=== PATIENT | male | born 1955 | race Caucasian/White ===

== ENCOUNTER 2020-09-08 09:31 | Day surgery (SDC) | payer OTHER, SELFPAY ==
[2020-09-08] VITALS (10 sets, daily range): BP systolic 94–141; BP diastolic 44–77; PULSE 57–65; RESP 12–18; TEMP 36.1–36.6; O2SAT 91–97; BMI 40.8
--- NOTE | 2020-09-08 10:10 | SUR.PREOP ---
Pt to preop. Rapid covid swab done at 0957. Pt taken to Dr frey's office in wheelchair for H&P by NAS Rogers.
[2020-09-08 10:27] LABS: COVID19 -Nasal RAPID Negative (Negative)
--- NOTE | 2020-09-08 11:33 | SUR.PREOP ---
1033 - Pt returned from Dr Hernandez's office.
--- NOTE | 2020-09-08 12:00 | PM.PREOP ---
Pre-operative Note Interval Note History & Physical reviewed/Exam performed by Physician: Yes Changes to H&P: No
[2020-09-08] MEDS: LACTATED RINGERS 1,000 ML 42 ML IV (12:25)
[2020-09-08] MEDS: CEFAZOLIN VIAL 3 GM in SODIUM CHLORIDE 0.9% 100 ML 200 ML IV (12:38)
--- NOTE | 2020-09-08 13:07 | SUR.OPER ---
Lithotomy on padded OR bed, head on pillow, arms secured on padded arm boards at <90 degrees abduction. Legs secured in padded yellow fins stirrups. Safety Belt across abdomen.
--- NOTE | 2020-09-08 14:30 | PM.OP.1 ---
Operative Date/Time/Diagnoses Date of procedure: 09/08/20 Time of procedure: 14:30 Pre-op diagnosis: Large obstructing left ureteral calculi x2 Post-op diagnosis: same Procedure & Clinicians Procedure: 1. Cystoscopy and left ureteroscopic laser lithotripsy. 2. Cystoscopy and placement left ureteral stent Same procedure as scheduled: Yes Indications: 1. Large obstructing ureteral calculi x2 Surgeon: Eleni Hernandez Click Yes if Unassisted: Yes Anesthesia Type: General Operative Notes Findings: 1. Urethra-normal 2. External sphincter coapted with normal overlying urothelium. 3. Prostate-4.5 cm length with markedly elevated median bar. 4. Bladder-1 to 2+ trabeculation. Both ureteral orifices were large caliber likely from multiple previous interventions and stone passages. 5. Left ureter-index calculi were unchanged in their position as seen on recent CT KUB. Closure Type: not applicable Specimen(s): none sent Applied: other (6 Nepalese by 22-32 cm multi-length left ureteral stent) Estimated Blood Loss (mL): 0 Blood products transfused: none Tourniquet time (min): 0 Procedure in detail: Patient was positioned supine and administered general anesthesia. He was then repositioned semi lithotomy and the lower abdomen, genitalia and groin were prepped and draped in sterile fashion. The 22 Nepalese panendoscope was then passed and lower urinary tract with the findings as described above. A 0.35 hybrid guidewire was then selected and advanced through the working port of the panendoscope and advanced into the left collecting system under direct and fluoroscopic guidance. Next, a semi rigid ureteral scope was advanced lower urinary tract and then into the left ureteral orifice and then advanced more proximally. The most distal stone was encountered. A 273 micron laser fiber was then selected. All operating room personnel and patient were fitted with laser safety eyewear. Laser lithotripsy was then commenced and the stone fragment was gradually fragmented and broken down satisfactorily. Most of the residual fragments were cleared from the ureter with combined hydrostatic and mechanical agitation. The semi-rigid ureteroscope was then advanced more proximally where the left ureteral pelvic junction calculus was encountered. Laser lithotripsy was then again commenced and the stone began to break down but then migrated and fell into the renal pelvis proper. Next, the semi rigid ureteral scope was removed. A dual-lumen ureteral access catheter was then advanced over the existing guidewire under fluoroscopic guidance. A 2nd 0.35 guidewire was then advanced through the accessory lumen again under fluoroscopic guidance. The double-lumen ureteral access catheter was then backloaded off the wires. One wire was secured to the drape. The flexible ureteral scope was then advanced over the other wire and advanced into the inter renal collecting system on the left under fluoroscopic guidance. The guidewire was then removed. The laser fiber was then advanced into the flexible ureteral scope and the index calculus was then laser fragmented with painstaking effort. Flexible ureteral scope was then removed. The 22 Nepalese panendoscope was then backloaded onto the safety guidewire and advanced proximally. Now a 6 Nepalese by 22-32 cm multi-length ureteral stent was selected. This was advanced over the guidewire under direct and fluoroscopic guidance. A RETRIEVAL LINE WAS LEFT ATTACHED. The bladder was then drained completely and the panendoscope was removed a final time. The patient was then repositioned in supine, awakened, transferred to a rnorris awake in stable condition. Complications: none Post-operative Condition: stable Disposition: PACU Plan for aftercare: Discharge home
[2020-09-08] MEDS: FUROSEMIDE 20 MG/2 ML VIAL IV (14:40)
[2020-09-08] MEDS: OXYCODONE/ACETAMINOPHEN 5/325 TABLET 1 TAB PO (15:33)
== END 2020-09-08 15:36 | disposition home or self-care (01) ==
PROVIDERS: Referring Provider Specialist; Visit Provider Specialist
PROC: (CPT 52356; principal; 2020-09-08 11:30)
DX: N20.1 Calculus of ureter (principal); I10 Essential (primary) hypertension; E11.9 Type 2 diabetes mellitus without complications; I25.2 Old myocardial infarction; I73.9 Peripheral vascular disease, unspecified; G47.33 Obstructive sleep apnea (adult) (pediatric); Z95.1 Presence of aortocoronary bypass graft; Z79.84 Long term (current) use of oral hypoglycemic drugs; Z20.828 Contact with and (suspected) exposure to other viral communicable diseases; N20.0 Calculus of kidney; N23 Unspecified renal colic; Z87.442 Personal history of urinary calculi; N40.1 Benign prostatic hyperplasia with lower urinary tract symptoms; Z87.440 Personal history of urinary (tract) infections; N13.8 Other obstructive and reflux uropathy
CPT/HCPCS: 52356; 52332; 81002; 82962; 87635; J0690; J1100; J1940; J2250; J2405; J2704; J3010

== ENCOUNTER → 2020-09-20 09:38 | Outpatient (CLI) | payer OTHER, MEDICARE, SELFPAY | PROVIDERS: Visit Provider Specialist | DX: N39.0 Urinary tract infection, site not specified (principal); Z87.440 Personal history of urinary (tract) infections | CPT/HCPCS: 81002; 87086 ==

== ENCOUNTER → 2022-08-28 14:55 | Outpatient (CLI) | payer OTHER, SELFPAY ==
--- NOTE | 2022-08-28 14:56 | DI.CT.S_ITS ---
PROCEDURE: CT KIDNEY URETER BLADDER (KUB) INDICATIONS: possible kidney stones TECHNIQUE: Axial sections were acquired from the lung bases to the pubic symphysis. Coronal and sagittal reformats were performed. For radiation dose reduction, the following was used: automated exposure control, adjustment of mA and/or kV according to patient size. COMPARISON: [facility], CT, CT ANGIO CHEST ABDOMEN PELVIS, 03/28/2021, 21:57. FINDINGS: Image quality: Excellent. Lung bases: Unremarkable. Heart: No significant findings. URINARY: Right Kidney: There is atrophy of the lower pole of the right kidney. A low-density cyst is present at the upper pole. No hydronephrosis. No nephrolithiasis. Right Ureter: No hydroureter. Left Kidney: Multiple nonobstructing calculi are present within the left kidney measuring up to 8 mm in diameter. The 8 mm calculus measures approximately 400 Hounsfield units in density. Left Ureter: No hydroureter. Bladder: Normal wall thickness. No stones. ABDOMEN: Liver: Unremarkable. Gallbladder: A subcentimeter stone is present within the gallbladder fundus. No gallbladder wall thickening or pericholecystic fluid. Biliary ducts: Unremarkable. Pancreas: Unremarkable. Spleen: Unremarkable. Adrenal Glands: Unremarkable. Stomach and Bowel: Stomach, small bowel loops, and colon are unremarkable. The appendix is thin walled and gas filled. Peritoneum: No abnormal intraperitoneal fluid. No free air. Ventral Wall: No hernia. Abdominal Nodes: No enlarged retroperitoneal or mesenteric lymph nodes. Vessels: Aorta and inferior vena cava are normal in size. There are scattered atheromatous calcifications throughout the aorta and iliac arteries bilaterally. PELVIS: Pelvic Organs: Unremarkable. Pelvic Nodes: Unremarkable. Miscellaneous: No inguinal hernias are seen. Bones: Unremarkable. IMPRESSION: 1. Nonobstructive left nephrolithiasis. No hydronephrosis, hydroureter, or ureterolithiasis. 2. No acute intra-abdominal findings. Normal appendix. Dictated by: Valencia Madrid M.D. on 08/29/2022 at 13:57 Approved by: Valencia Madrid M.D. on 08/29/2022 at 14:01
== END ==
PROVIDERS: PCP Family Medicine; Referring Provider Specialist; Visit Provider Specialist
DX: N20.0 Calculus of kidney (principal); K80.20 Calculus of gallbladder without cholecystitis without obstruction
CPT/HCPCS: 74176

== ENCOUNTER → 2023-02-08 10:06 | Outpatient (CLI) | payer OTHER, SELFPAY ==
--- NOTE | 2023-02-08 10:06 | DI.CT.S_ITS ---
PROCEDURE: CT KIDNEY URETER BLADDER (KUB) INDICATIONS: History of Kidney stones TECHNIQUE: Axial sections were acquired from the lung bases to the pubic symphysis. Coronal and sagittal reformats were performed. For radiation dose reduction, the following was used: automated exposure control, adjustment of mA and/or kV according to patient size. COMPARISON: [facility], CT, CT KIDNEY URETER BLADDER (KUB), 08/28/2022, 15:00. FINDINGS: Image quality: Excellent. Lung bases: Unremarkable. Heart: Post median sternotomy. Coronary artery calcifications. URINARY: Right Kidney: No stones or hydronephrosis. Small benign cysts. Right Ureter: No hydroureter. Left Kidney: 4 or 5 small nonobstructing kidney stones. The largest at the inferior pole measures 0.6 cm. No hydronephrosis. Left Ureter: No hydroureter. Bladder: Decompressed. No stones. ABDOMEN: Liver: Hepatic steatosis. Gallbladder: Small gallstone. Not distended. Biliary ducts: Unremarkable. Pancreas: Unremarkable. Spleen: Unremarkable. Adrenal Glands: Unremarkable. Stomach and Bowel: Stomach, small bowel loops, and colon are unremarkable. Normal appendix. Peritoneum: No abnormal intraperitoneal fluid. No free air. Ventral Wall: No hernia. Abdominal Nodes: No enlarged retroperitoneal or mesenteric lymph nodes. Vessels: Aorta and inferior vena cava are normal in size. PELVIS: Pelvic Organs: Unremarkable. Pelvic Nodes: Unremarkable. Miscellaneous: No inguinal hernias are seen. Bones: No suspicious lesion. IMPRESSION: 1. No obstructing calculus. No hydronephrosis. 2. Small nonobstructing left kidney stones. 3. Small gallstone. Dictated by: Saturnino Damon M.D. on 02/08/2023 at 14:37 Approved by: Saturnino Damon M.D. on 02/08/2023 at 14:43
== END ==
PROVIDERS: PCP Family Medicine; Referring Provider Specialist; Visit Provider Specialist
DX: N20.0 Calculus of kidney (principal); K80.20 Calculus of gallbladder without cholecystitis without obstruction
CPT/HCPCS: 74176